=== PATIENT | male | born 1980 | race American Indian/Alaskan Native ===

== ENCOUNTER 2018-09-04 18:41 | Emergency (ER) | payer MEDICAID ==
[2018-09-04 19:20] VITALS: BP 123/81
[2018-09-04] MEDS ORDERED: KEPPRA PO ONE (19:33)
--- NOTE | 2018-09-04 19:45 | Emergency Department Report ---
ED Seizure HPI - General Chief Complaint: Seizure Stated Complaint: SEIZURE Time Seen by Provider: 09/04/18 18:43 Source: patient, EMS (ems notes not available at time of chart dictation), RN notes reviewed Mode of arrival: Stretcher Limitations: No Limitations - History of Present Illness Initial Comments: This is a 38-year-old gentleman. The patient is not known to this provider previously. He may have a history of seizure disorder. He reports taking Keppra, 1000 mg, twice daily. EMS verbally reported to nursing team that the patient is reportedly noncompliant with his medications. The patient is brought to the hospital by emergency medical services for possible seizure. The patient reports that he was feeling fine, up until this afternoon, he walked outside, and "felt funny." He may have had a seizure. Currently, no friends or family are available at this time for collateral information. The patient endorses sporadic compliance with his antiepileptic drug medications. He reports that he feels like he had a seizure. He denies headache, neck pain, chest pain, abdominal pain, shortness of breath. He is asking to go home. He denies midline neck pain. 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 He denies physical pain or complaints at this time. He reports his last seizure was a few months ago MD Complaint: seizure, possible seizure -: Sudden Description of Episode: other Seizure History: other Place: street/outdoors Possible Precipitating Event: other - Related Data Previous Rx's Medication Instructions Recorded Last Taken Type levETIRAcetam [Keppra TAB] 1,000 mg PO BID #60 tab 09/04/18 Unknown Rx Allergies Allergy/AdvReac Type Severity Reaction Status Date / Time No Known Allergies Allergy Unverified 09/04/18 19:09 ED Review of Systems ROS: Stated complaint: SEIZURE Other details as noted in HPI Constitutional: denies: fever Eyes: denies: eye discharge ENT: other (nasal abrasion). denies: epistaxis Cardiovascular: denies: chest pain Gastrointestinal: denies: abdominal pain Genitourinary: denies: dysuria Musculoskeletal: denies: back pain Skin: rash (nasal abrasion) Neurological: denies: weakness ED Past Medical Hx - Past Medical History Previous Medical History?: Yes Hx Seizures: Yes - Social History Smoking Status: Current Every Day Smoker Substance Use Type: Marijuana - Medications Home Medications: Home Medications Medication Instructions Recorded Confirmed Last Taken Type levETIRAcetam [Keppra TAB] 1,000 mg PO BID #60 tab 09/04/18 Unknown Rx ED Physical Exam - General Limitations: No Limitations General appearance: alert, in no apparent distress - Head Head exam: Present: normocephalic, other (there is a nasal ecchymosis and erythema. The nose is displaced to the right) - Eye Eye exam: Present: normal appearance, PERRL, EOMI. Absent: nystagmus - ENT ENT exam: Present: normal orophraynx, mucous membranes moist, TM's normal bilaterally, normal external ear exam, other (there is no nasal septal hematoma. There is no hemotympanum). Absent: normal exam - Neck Neck exam: Present: normal inspection, full ROM. Absent: tenderness, meningismus - Respiratory Respiratory exam: Present: normal lung sounds bilaterally. Absent: respiratory distress - Cardiovascular Cardiovascular Exam: Present: regular rate, normal rhythm, normal heart sounds. Absent: bradycardia, tachycardia, irregular rhythm, systolic murmur, diastolic murmur, rubs, gallop - GI/Abdominal GI/Abdominal exam: Present: soft. Absent: distended, tenderness, guarding, rebound, rigid, pulsatile mass - Rectal Rectal exam: Present: deferred - Extremities Exam Extremities exam: Present: full ROM, other (2+ pulses noted in the bilateral upper, lower extremities. Compartments soft. No long bony tenderness. The pelvis is stable.). Absent: normal inspection (abrasion noted to the dorsal aspect of the left hand. There is no long bony tenderness. There is no snuffbox tenderness bilaterally. Numerous chronic appearing skin wounds noted.), tenderness, pedal edema, joint swelling, calf tenderness - Back Exam Back exam: Present: normal inspection, full ROM. Absent: tenderness, CVA tenderness (R), paraspinal tenderness, vertebral tenderness - Neurological Exam Neurological exam: Present: alert, oriented X3, normal gait, other (Extraocular movements intact. Tongue midline. No facial droop. Facial sensation intact to light touch in the V1, V2, V3 distribution bilaterally. 5 and 5 strength in 4 extremities.. Sensation is intact to light touch in 4 extremities.). Absent: motor sensory deficit - Psychiatric Psychiatric exam: Present: anxious - Skin Skin exam: Present: warm ED Course Vital Signs 09/04/18 09/04/1819 18:56 19:00 19:12 Temperature 97.9 F Pulse Rate 94 H 89 96 H Respiratory 13 23 20 Rate Blood Pressure 130/86 130/86 Blood Pressure [Left] O2 Sat by Pulse 96 95 99 Oximetry 09/04/18 09/04/18 19:15 19:18 Temperature Pulse Rate 86 96 H Respiratory 19 20 Rate Blood Pressure 123/81 Blood Pressure 130/86 [Left] O2 Sat by Pulse 95 99 Oximetry ED Medical Decision Making - Lab Data Vital Signs 09/04/18 09/04/18 09/04/18 18:56 19:00 19:12 Temperature 97.9 F Pulse Rate 94 H 89 96 H Respiratory 13 23 20 Rate Blood Pressure 130/86 130/86 Blood Pressure [Left] O2 Sat by Pulse 96 95 99 Oximetry 09/04/18 09/04/18 19:15 19:18 Temperature Pulse Rate 86 96 H Respiratory 19 20 Rate Blood Pressure 123/81 Blood Pressure 130/86 [Left] O2 Sat by Pulse 95 99 Oximetry - Medical Decision Making Differential diagnosis, including but not limited to: Breakthrough seizure, medication noncompliance, facial bone fracture, intracranial injury, Assessment and plan: 38-year-old gentleman with probable breakthrough seizure, likely secondary to medication noncompliance. The patient is currently playing on a cellular phone during his initial interview. The patient is alert and oriented to name, month, location, date and year. The patient is free from distracting injury at this time, and he exhibits decision-making capacity at this time. I have advised the patient that we recommend screening laboratory studies, to assess for muscle breakdown, hepatic and renal function, and we have recommended CT scan of the brain and facial bones to assess for traumatic injury. The patient is declining all of these interventions at this time. Extensive discussion had with the patient. Explained that we would not consider this a safe discharge plan without the aforementioned diagnostics, and that the patient would need to sign out AGAINST MEDICAL ADVICE. The risks of leaving, including , disability, paralysis, loss of quality of life were discussed with the patient, who verbalized these risks and his own words, and is still adamant that he does not want to the aforementioned diagnostics. Patient will be given Keppra in the emergency room orally, he will be discharged with a prescription for Keppra, he will be instructed to not drive or operate motor vehicles for the next 6 months. Apparently in a conversation witnessed by nurse Shabnam Baker Critical care attestation.: If time is entered above; I have spent that time in minutes in the direct care of this critically ill patient, excluding procedure time. ED Disposition Clinical Impression: History of seizures Disposition: - LEFT AGAINST MED ADVICE Is pt being admited?: No Does the pt Need Aspirin: No Condition: Undetermined Instructions: Recurrent Seizures Adult (ED) Additional Instructions: As we discussed, you have left the hospital/emergency room AGAINST MEDICAL ADVICE. By leaving, you risked , disability, paralysis, permanent loss of quality of life. The ER is open 24 hours a day, 7 days a week. It never closes. Please return to the emergency room right away if and when you change your mind. If you decide not to return to the emergency room, please follow-up with the listed physician referrals as soon as possible. Referrals: TYLER BERMUDEZ MD [Referring] - 3-5 Days JADE MENDOZA MD [Staff Physician] - 3-5 Days REBA DILL MD [Staff Physician] - 3-5 Days
== END 2018-09-04 20:03 | disposition left against medical advice (07) ==
LOC: ED 18:41
DX: G40.909 Epilepsy, unspecified, not intractable, without status epilepticus (principal); F17.200 Nicotine dependence, unspecified, uncomplicated; F12.90 Cannabis use, unspecified, uncomplicated
CPT/HCPCS: 99283

== ENCOUNTER 2018-09-06 17:54 | Emergency (ER) | payer MEDICAID ==
[2018-09-06] MEDS ORDERED: KEPPRA 1,000 MG/NS 0.75% 100ML 1,000 MG/100 ML BAG IV ONE (18:05)
--- NOTE | 2018-09-06 18:30 | Emergency Department Report ---
ED Seizure HPI - General Chief Complaint: Seizure Stated Complaint: SEIZURE Time Seen by Provider: 09/06/18 18:12 Source: patient, EMS Mode of arrival: Stretcher Limitations: Other - History of Present Illness Initial Comments: 38-year-old female with past medical history seizure disorder the hospital after seizure. Seizure was witnessed by EMS and patient received 2 mg Ativan IM prior to arrival. Patient presents ictal and sedated and unable to provide any significant history of present illness. - Related Data Previous Rx's Medication Instructions Recorded Last Taken Type levETIRAcetam [Keppra TAB] 1,000 mg PO BID #60 tab 09/07/18 Unknown Rx Allergies Allergy/AdvReac Type Severity Reaction Status Date / Time No Known Allergies Allergy Unverified 09/06/18 18:04 ED Review of Systems ROS: Stated complaint: SEIZURE Other details as noted in HPI Comment: All other systems reviewed and negative ED Past Medical Hx - Past Medical History Previous Medical History?: Yes Hx Seizures: Yes - Social History Smoking Status: Unknown if ever smoked - Medications Home Medications: Home Medications Medication Instructions Recorded Confirmed Last Taken Type levETIRAcetam [Keppra TAB] 1,000 mg PO BID #60 tab 09/07/18 Unknown Rx ED Physical Exam - General Limitations: Other - Other Other exam information: General: Sedated Head exam: Atraumatic, normocephalic Eyes exam: Pupils equal reactive to light ENT: No lip laceration Neck exam: Normal inspection, full range of motion, no meningismus nontender Respiratory exam: Clear to auscultation bilateral, no wheezes, rales, crackles Cardiovascular: Normal rate and rhythm, normal heart sounds Abdomen: Soft, nondistended, and nontender, with normal bowel sounds, no rebound, or guarding Extremity: Full range of motion normal inspection no deformity Back: Normal Inspection, full range of motion, no tenderness Neurologic: Lethargic but arousable to tactile stimulation, sensation grossly intact, moves all extremities equally Psychiatric: normal affect, normal mood Skin: Warm, dry, intact ED Course Vital Signs 09/06/18 09/06/18 09/06/18 18:00 21:00 22:00 Temperature 98.1 F Pulse Rate 74 63 68 Respiratory 16 18 17 Rate Blood Pressure 122/86 118/84 127/76 O2 Sat by Pulse 97 97 97 Oximetry 09/07/18 09/07/18 01:00 01:49 Temperature Pulse Rate 71 Respiratory 15 18 Rate Blood Pressure 129/75 O2 Sat by Pulse 94 96 Oximetry - Reevaluation(s) Reevaluation #1: 09/07/18 01:59 ED stay patient woke up and tried to ambulate. He was unsteady, confused, at risk of falls. He is in place in the bed and restrained his CT head and neck were ordered. These studies were unremarkable. This time patient is sleeping but easily arousable. He is alert and oriented to year and that he is in the hospital. He states he has been compliant with his medications. He denies pain. He states he has medications at home and will be discharged. ED Medical Decision Making - Lab Data Result diagrams: 09/06/18 18:58 09/06/18 18:58 Lab Results 09/06/18 09/06/18 Range/Units 18:58 18:58 WBC 9.5 (4.5-11.0) K/mm3 RBC 4.93 (3.65-5.03) M/mm3 Hgb 14.0 (11.8-15.2) gm/dl Hct 40.2 (35.5-45.6) % MCV 82 L (84-94) fl MCH 28 (28-32) pg MCHC 35 H (32-34) % RDW 13.5 (13.2-15.2) % Plt Count 152 (140-440) K/mm3 Lymph % (Auto) 10.1 L (13.4-35.0) % Orange % (Auto) 4.9 (0.0-7.3) % Eos % (Auto) 0.4 (0.0-4.3) % Baso % (Auto) 0.7 (0.0-1.8) % Lymph # 1.0 L (1.2-5.4) K/mm3 Orange # 0.5 (0.0-0.8) K/mm3 Eos # 0.0 (0.0-0.4) K/mm3 Baso # 0.1 (0.0-0.1) K/mm3 Seg Neutrophils % 83.9 H (40.0-70.0) % Seg Neutrophils # 8.0 H (1.8-7.7) K/mm3 Sodium 139 (137-145) mmol/L Potassium 4.5 (3.6-5.0) mmol/L Chloride 103.6 (98-107) mmol/L Carbon Dioxide 25 (22-30) mmol/L Anion Gap 15 mmol/L BUN 9 (9-20) mg/dL Creatinine 0.9 (0.8-1.5) mg/dL Estimated GFR > 60 ml/min BUN/Creatinine Ratio 10 % Glucose 104 H (75-100) mg/dL Calcium 8.7 (8.4-10.2) mg/dL Magnesium 1.90 (1.7-2.3) mg/dL - Radiology Data Radiology results: report reviewed PROCEDURE: CT HEAD/BRAIN WO CON TECHNIQUE: Computerized tomography of the head was performed without contrast material. HISTORY: seizure, confusion COMPARISONS: None . FINDINGS: Skull and scalp: Normal . Paranasal sinuses: Normal . Ventricles and subarachnoid spaces: Normal . Cerebrum: There are areas of hypoattenuation identified in the left frontal and temporal lobes most c onsistent with chronic infarction. No evidence of acute hemorrhage or hematoma. No midline displacement or mass. . Cerebellum and brainstem: No evidence of hemorrhage, acute infarction or mass . Vasculature: Normal . Other: None . ASPECTS: 10 IMPRESSION: Areas of hypoattenuation in the left frontal and temporal lobes most consistent with a chronic infarction. There is no evidence of acute intracranial process. . PROCEDURE: CT CERVICAL SPINE WO CON TECHNIQUE: Computerized tomography of the cervical spine was performed from the skull base to T1 without contrast material. HISTORY: sz, head injury, ams COMPARISONS: None . FINDINGS: The alignment of the vertebral segments is normal. No acute fracture or dislocation of the cervical spine. Spinal canal is adequate at all levels. C1-2: No significant abnormality . C2-3: No significant abnormality . C3-4: No sign ificant abnormality . C4-5: No significant abnormality . C5-6: No significant abnormality . C6-7: No significant abnormality . C7-T1: No significant abnormality . Fractures: None . Other: No additional findings . IMPRESSION: Normal CT cervical spine . - Medical Decision Making ED workup unremarkable. Patient at baseline and oriented. Will be discharged - Differential Diagnosis electrolytes abnormalities, breakthrough seizure, medication noncompliance Critical Care Time: No Critical care attestation.: If time is entered above; I have spent that time in minutes in the direct care of this critically ill patient, excluding procedure time. ED Disposition Clinical Impression: Seizure Disposition: DC-01 TO HOME OR SELFCARE Is pt being admited?: No Does the pt Need Aspirin: No Condition: Stable Instructions: Recurrent Seizures Adult (ED) Additional Instructions: Take the medication as prescribed. Follow up with your doctor or the clinic/doctor provided. Return if symptoms worsen as indicated by your discharge instructions Prescriptions: levETIRAcetam [Keppra TAB] 1,000 mg PO BID #60 tab Referrals: REBA DILL MD [Staff Physician] - 3-5 Days (Neurologist) Time of Disposition: 02:02
[2018-09-06 19:06] LABS: Basophils # (Auto) 0.1 K/mm3 (0.0-0.1); Basophils % (Auto) 0.7 % (0.0-1.8); Eosinophils % (Auto) 0.4 % (0.0-4.3); Hematocrit 40.2 % (35.5-45.6); Lymphocytes % (Auto) 10.1 % (13.4-35.0); Mean Corpuscular HGB Conc 35 % (32-34); Mean Corpuscular Volume 82 fl (84-94); Monocytes # (Auto) 0.5 K/mm3 (0.0-0.8); Monocytes % (Auto) 4.9 % (0.0-7.3); Platelet Count 152 K/mm3 (140-440); Red Blood Count 4.93 M/mm3 (3.65-5.03); Red Cell Distribution Width 13.5 % (13.2-15.2)
[2018-09-06 19:22] LABS: BUN/Creatinine Ratio 10; Blood Urea Nitrogen 9 mg/dL (9-20); Calcium 8.7 mg/dL (8.4-10.2); Hemolysis Index 3
--- NOTE | 2018-09-06 23:59 | Cat Scan Report ---
PROCEDURE: CT HEAD/BRAIN WO CON TECHNIQUE: Computerized tomography of the head was performed without contrast material. HISTORY: seizure, confusion COMPARISONS: None . FINDINGS: Skull and scalp: Normal . Paranasal sinuses: Normal . Ventricles and subarachnoid spaces: Normal . Cerebrum: There are areas of hypoattenuation identified in the left frontal and temporal lobes most consistent with chronic infarction. No evidence of acute hemorrhage or hematoma. No midline displacem ent or mass. . Cerebellum and brainstem: No evidence of hemorrhage, acute infarction or mass . Vasculature: Normal . Other: None . ASPECTS: 10 IMPRESSION: Areas of hypoattenuation in the left frontal and temporal lobes most consistent with a c hronic infarction. There is no evidence of acute intracranial process. . This document is electronically signed by Lucero Ordaz DO., Sep 06 2018 11:56:54 PM ET
--- NOTE | 2018-09-07 | Cat Scan Report ---
PROCEDURE: CT CERVICAL SPINE WO CON TECHNIQUE: Computerized tomography of the cervical spine was performed from the skull base to T1 wit hout contrast material. HISTORY: sz, head injury, ams COMPARISONS: None . FINDINGS: The alignment of the vertebral segments is normal. No acute fracture or dislocation of the cervical s pine. Spinal canal is adequate at all levels. C1-2: No significant abnormality . C2-3: No significant abnormality . C3-4: No significant abnormality . C4-5: No significant abnormality . C5-6: No significant abnormality . C6-7: No significant abnormality . C7-T1: No significant abnormality . Fractures: None . Other: No additional findings . IMPRESSION: Normal CT cervical spine . This document is electronically signed by Lucero Ordaz DO., Sep 06 2018 11:58:22 PM ET
[2018-09-07 01:52] VITALS: BP 129/75
== END 2018-09-07 04:30 | disposition home or self-care (01) ==
LOC: ED 17:54
DX: G40.909 Epilepsy, unspecified, not intractable, without status epilepticus (principal)
CPT/HCPCS: 36415; 70450; 72125; 80048; 83735; 85025; 96365; 99284; J1953